=== PATIENT | male | born 1990 | race Caucasian/White ===

== ENCOUNTER 2016-06-18 19:29 | Observation (INO) | payer SELFPAY ==
[~2016-06-18] VITALS: Ht 180.3 cm; Wt 72.6 kg
--- NOTE | ~2016-06-18 | DS ---
PATIENT'S NAME: LUCILA GAGNON [facility] AGE: 25 Y [address] ROOM: [place] [address] LOCATION: GPED ADMIT DATE: 06/18/2016 Discharge Summary DISCHARGE DATE: 06/19/2016 FAMILY PHYSICIAN: PHYSICIAN, NO ATTENDING PHYSICIAN: Omar Pizano PRIMARY DIAGNOSES: 1. Drug overdose, unintentional (clonidine). 2. Bradycardia, asymptomatic. 3. Polysubstance abuse. OPERATIONS/PROCEDURES: None. HISTORY OF PRESENTING ILLNESS/REASON FOR ADMISSION: Please refer to the H and P dictated on 06/18/2016. HOSPITAL COURSE: The patient has been admitted to the hospital as noted above with a presumptive diagnosis of unintentional drug overdose. He states that he had taken three 0.3 mg tablets of clonidine believing that it was Benadryl. He discovered the mistake himself. Because he was feeling unwell, he decided to present to the emergency room for definitive evaluation and management. At some point, it was determined that he may have taken as many as 4 tablets. He did receive activated charcoal within 2 hours of ingestion. On arrival, he was bradycardic with heart rates around 40. Additional laboratory workup including aspirin and Tylenol levels were below limits of detectability. He was monitored on telemetry and remained relatively asymptomatic over the course of the night. By the following morning, he was completely asymptomatic and ambulating in the room independently. He expressed his intention to go home. I discussed with him that he was still bradycardic, but he indicated that he felt fine and wanted to leave. We did briefly discuss polysubstance use and dependence, but he expressed no desire or intention to quit using. At that point, it was felt he would be stable enough for discharge to home with discretion towards any additional medication ingestion including the clonidine or anticholinergics or any other nonprescribed remedies. I suggested that he establish primary care with a physician in [facility] and he expressed agreement to do so after he goes home. DISCHARGE INSTRUCTIONS: Diet: Regular as tolerated. Activity: As tolerated. MEDICATIONS: None. PATIENT'S NAME: LUCILA GAGNON [facility] AGE: 25 Y [address] ROOM: [place] [address] LOCATION: GPED ADMIT DATE: 06/18/2016 Discharge Summary DISCHARGE DATE: 06/19/2016 FAMILY PHYSICIAN: , ELIAS ATTENDING PHYSICIAN: Omar Pizano FOLLOWUP: He will follow up with his primary care provider yet to be determined in 1 week here in [place]. CONDITION ON DISCHARGE: Fair. TOTAL TIME SPENT ON DISCHARGE PROCESS: 25 minutes. MD JEFF MEADE/mary anne /[id number] d: 06/20/16 0359 t: 06/30/16 1532, DISCHARGE SUMMARY
--- NOTE | ~2016-06-18 | ER ---
PATIENT'S NAME: LUCILA GAGNON [facility] AGE: 25 Y [address] ROOM: [place] [id number] LOCATION: GPED ADMIT DATE: 06/18/2016 ER/Outpatient Report DISCHARGE DATE: 06/19/2016 FAMILY PHYSICIAN: PHYSICIAN, NO ATTENDING PHYSICIAN: Omar Pizano Time of Arrival: 1929 hours. Time of Evaluation: 1950 hours. CHIEF COMPLAINT: This is a 25-year-old male. He is previously healthy. He is in with complaint of an accidental overdose. HISTORY OF PRESENT ILLNESS: He claims that he was attempting to take some child cold medicine. He thought he had child Benadryl, so he took 4 pills. He subsequently began to feel lightheaded, looked more closely at the bile and realized it was clonidine 0.3 mg prescription. He does not have a prescription for clonidine, it was another household member. He denies that this is a suicide attempt. PAST MEDICAL HISTORY: He denies any chronic medical problems. CURRENT MEDICATIONS: He is on no chronic medications. REVIEW OF SYSTEMS: He has had a recent upper respiratory infection. PHYSICAL EXAMINATION: GENERAL: Thin, cooperative male, in no acute distress. VITAL SIGNS: Labile. He is intermittently profoundly bradycardic SKIN: Warm and dry. Color is pale. HEENT: Head, ears, eyes, nose, and throat were normal. NECK: Supple. HEART: Had a regular rate and rhythm without murmur. He tolerated bradycardia fairly well. LUNGS: Clear. Breath sounds are equal. ABDOMEN: Soft. EXTREMITIES: Normal. NEUROLOGIC: Normal. EMERGENCY DEPARTMENT COURSE: He had episodes of bradycardia with heart rate down as low as 35. They were only minimally symptomatic. He maintained normal blood pressure during these episodes. CBC and metabolic profile were unremarkable. Urine drug screen was PATIENT'S NAME: LUCILA GAGNON [facility] AGE: 25 Y [address] ROOM: [place] [id number] LOCATION: GPED ADMIT DATE: 06/18/2016 ER/Outpatient Report DISCHARGE DATE: 06/19/2016 FAMILY PHYSICIAN: PHYSICIAN, NO ATTENDING PHYSICIAN: Omar Pizano A positive for cannabis. Dr. Pizano, the hospitalist was called, who arrived promptly, evaluated the patient and made arrangements to admit the patient. ASSESSMENT: Accidental clonidine overdose with bradycardia, no hypotension. PLAN: Admit to Dr. Pizano. DANG GAVIRIA MD JDB/modl /[id number] d: 06/20/16 0524 t: 07/18/16 0957, OUTPATIENT REPORT
--- NOTE | ~2016-06-18 | HP ---
PATIENT'S NAME: [facility] AGE: 25 Y [address] ROOM: [place] [address] LOCATION: GPED ADMIT DATE: 06/18/2016 History & Physical DISCHARGE DATE: FAMILY PHYSICIAN: PHYSICIAN, UNKNOWN ATTENDING PHYSICIAN: FLAKITO NORIEGA DATE OF SERVICE: CHIEF COMPLAINT: Unintentional drug overdose. HISTORY OF PRESENT ILLNESS: A 25-year-old gentleman with no significant past medical history unintentionally took clonidine 1.2 mg in total, while he was trying to take Benadryl this evening around 7:00 p.m. After that, he was feeling "weird." On my encounter, he denied having any chest pain, any shortness of breath, any dizziness any trouble with the eyes, any abdominal pain, any leg swelling. REVIEW OF SYSTEMS: All other systems were reviewed and were negative, except what is mentioned in the HPI. ALLERGIES: NO KNOWN DRUG ALLERGIES. PAST MEDICAL HISTORY: No significant past medical history. MEDICATIONS: No home medications. SOCIAL HISTORY: Half pack per day smoker. Also, uses marijuana. Currently unemployed. FAMILY HISTORY: Family history is negative for coronary artery disease, hypertension, or diabetes. PHYSICAL EXAMINATION: VITAL SIGNS: 114/72, 52, 16, afebrile. GENERAL: No acute distress. Alert and oriented x3. HEENT: Head: Atraumatic, normocephalic. Eyes: Nonicteric. No pallor. Oropharynx: Moist mucous membranes. CARDIOVASCULAR: Bradycardic. S1, S2. No murmurs, gallops, or rubs. LUNGS: Clear to auscultation bilaterally. PATIENT'S NAME: [facility] AGE: 25 Y [address] ROOM: [place] [address] LOCATION: GPED ADMIT DATE: 06/18/2016 History & Physical DISCHARGE DATE: FAMILY PHYSICIAN: PHYSICIAN, UNKNOWN ATTENDING PHYSICIAN: FLAKITO NORIEGA NECK: No thyromegaly. No lymphadenopathy. ABDOMEN: Soft, nontender, and nondistended. Bowel sounds present. EXTREMITIES: No clubbing, cyanosis or edema. NEUROLOGIC: Cranial nerves 2 through 12 intact. No motor or sensory deficits. PSYCHIATRIC: Normal affect, mood, and speech. SKIN: Multiple tattoos noted. No bruises or rashes. MUSCULOSKELETAL: No muscle tenderness or joint swelling noted. LABORATORY DATA: EKG was done in the emergency department, showed sinus bradycardia. Lab work showed elevated white count at 14.8 and a potassium of 3.8. UDS was positive for marijuana. First set of Tylenol and salicylate levels are negative. ASSESSMENT AND PLAN: 1. Clonidine overdose. 2. Polysubstance abuse. 3. Sinus bradycardia. We are going to admit this patient for observation. We will put him on telemetry and observe the rhythm. He received charcoal within 2 hours of clonidine ingestion. Intravenous fluid resuscitation will be done with Ringer's lactate. Further course of hospitalization will depend on his progress. Early ambulation for DVT prophylaxis. The patient is full code. MD CASANDRA YARBROUGH/mary anne /[id number] D: [id number] T: [id number] HISTORY & PHYSICAL
[2016-06-18 20:29] LABS: BASOPHIL # 0.1 K/uL (0.0-0.2); BASOPHIL % 0.5 %; EOSINOPHIL # 0.2 K/uL (0.0-0.5); EOSINOPHIL % 1.1 %; HEMATOCRIT 43.6 % (37.0-53.0); HEMOGLOBIN 14.6 g/dL (12.0-17.0); IMMATURE GRANULOCYTE # 0.1 K/uL (0.0-0.3); IMMATURE GRANULOCYTE % 0.4 %; LYMPHOCYTE # 3.2 K/uL (0.8-4.0); LYMPHOCYTE % 21.3 %; MCH 30.2 pg (27.0-34.0); MCHC 33.5 gm/dL (32.0-36.5); MCV 90.3 fl (83.0-98.0); MPV 10.3 fl (9.4-12.4); NEUTROPHIL # (ANC) 10.3 K/uL (1.4-9.0); NEUTROPHIL % 69.7 %; NRBC % 0 /100WBC (0-0.00); PLATELET COUNT 346 K/uL (150-450); RBC 4.83 M/uL (4.00-6.00); RDW-CV 12.1 % (11.9-14.6); WBC 14.8 K/uL (4.0-11.0)
[2016-06-18 20:44] LABS: ALBUMIN 3.6 gm/dL (3.5-5.0); ALK PHOS 89 IU/L (33-138); ALT 13 IU/L (12-78); ANION GAP 12.2 (10.0-19.0); AST 8 IU/L (10-40); BLOOD UREA NITROGEN 10 mg/dL (6-24); CALCIUM 8.6 mg/dL (8.5-10.5); CHLORIDE 110 mMol/L (96-110); CO2 24 mMol/L (22-32); CREATININE 0.9 mg/dL (0.6-1.3); ESTIMATED GFR (MDRD EQUATION) > 60; POTASSIUM 3.2 mMol/L (3.7-5.1); SODIUM 143 mMol/L (135-145); TOTAL BILIRUBIN 0.3 mg/dL (0.0-1.5); TOTAL PROTEIN 6.7 g/dL (6.0-8.4)
[2016-06-18 20:45] LABS: BARBITURATE NEGATIVE (NEGATIVE); COCAINE NEGATIVE (NEGATIVE); OPIATES NEGATIVE (NEGATIVE)
[2016-06-18 20:47] LABS: AMPHETAMINE NEGATIVE (NEGATIVE)
--- NOTE | 2016-06-19 00:30 | NUR ---
PATIENT ARRIVES TO UNIT AT 2215 VIA WHEELCHAIR ACCOMPANIED BY TRANSPORT STAFF. PATIENT IS ALERT AND ORIENTED AND TRANSFERS SELF TO THE BED. HE DENIES DIZZINES. VS OBATINED AND ARE STABLE. HR IS 48. PATIENT EDUCATED ON PROCEDURE IF HIS HR DOES NOT REMAIN STABLE. HE VERBALIZES UNDERSTANDING. PATIENT'S GIRLFRIEND IS IN BED WITH HIM. NO NEEDS VERBALIZED AT THIS TIME.
--- NOTE | 2016-06-19 04:47 | NUR ---
Significant Event: PATIENT ARRIVES TO THE FLOOR FOR A CLONIDINE OVERDOSE. REPORTEDLY THINKING IT WAS BENADRYL. PATIENT DENIES SUICIDAL THOUGHTS. HE TOOK 3 TABLETS TOTAL. HE WAS KEPT OVERNIGHT DUE TO BRADYCARDIA. HR RANGES FROM 44-58. PATIENT DENIES DIZZINESS OR ANY OTHER SYMPTOMS. TELE IN PLACE. PATIENT RECEIVED 1L LR BOLUS UPON ARRIVAL TO FLOOR AND IS SL NOW. GIRLFRIEND IN ROOM WITH HIM. Follow up:
[2016-06-19 06:26] LABS: BASOPHIL # 0.1 K/uL (0.0-0.2); BASOPHIL % 0.7 %; EOSINOPHIL # 0.4 K/uL (0.0-0.5); EOSINOPHIL % 2.9 %; HEMATOCRIT 42.6 % (37.0-53.0); HEMOGLOBIN 14.1 g/dL (12.0-17.0); IMMATURE GRANULOCYTE # 0.1 K/uL (0.0-0.3); IMMATURE GRANULOCYTE % 0.6 %; LYMPHOCYTE # 4.1 K/uL (0.8-4.0); LYMPHOCYTE % 30.4 %; MCH 30.3 pg (27.0-34.0); MCHC 33.1 gm/dL (32.0-36.5); MCV 91.6 fl (83.0-98.0); MONOCYTE # 1.2 K/uL (0.0-1.0); MONOCYTE % 8.6 %; MPV 10.2 fl (9.4-12.4); NEUTROPHIL # (ANC) 7.8 K/uL (1.4-9.0); NEUTROPHIL % 56.8 %; NRBC % 0 /100WBC (0-0.00); PLATELET COUNT 290 K/uL (150-450); RBC 4.65 M/uL (4.00-6.00); RDW-CV 12.2 % (11.9-14.6); WBC 13.6 K/uL (4.0-11.0)
[2016-06-19 06:41] LABS: ANION GAP 13.8 (10.0-19.0); BLOOD UREA NITROGEN 7 mg/dL (6-24); CALCIUM 8.2 mg/dL (8.5-10.5); CHLORIDE 108 mMol/L (96-110); CO2 24 mMol/L (22-32); CREATININE 0.9 mg/dL (0.6-1.3); ESTIMATED GFR (MDRD EQUATION) > 60; POTASSIUM 3.8 mMol/L (3.7-5.1); SODIUM 142 mMol/L (135-145)
== END 2016-06-19 09:52 | disposition disaster alternative care site (69) ==
LOC: GMED 19:29 → GPED 21:28
PROVIDERS: Emergency Medicine; ADMIT Internal Medicine
DX: T46.5X1A Poisoning by other antihypertensive drugs, accidental (unintentional), initial encounter (principal); R00.1 Bradycardia, unspecified; F19.10 Other psychoactive substance abuse, uncomplicated; F17.210 Nicotine dependence, cigarettes, uncomplicated
CPT/HCPCS: G0378; G0480; J0461; J7120